=== PATIENT | female | born 1985 | race Caucasian/White ===

== ENCOUNTER 2020-02-25 05:56 | Inpatient (IN) | payer BC, OTHER ==
[2020-02-25 06:32] VITALS: BMI 28.9
[2020-02-25] MEDS ORDERED: Promethazine HCl 25 MG/ML VIAL IM PRN (07:33)
[2020-02-25] MEDS ORDERED: Butorphanol Tartrate 1 MG/ML VIAL SLOW IVP PRN (07:33)
[2020-02-25] MEDS ORDERED: Ibuprofen 800 MG TAB PO PRN (07:33)
[2020-02-25] MEDS ORDERED: Ondansetron PF 4 MG/2 ML Vial IVP PRN ×2 (07:33→14:58)
[2020-02-25] MEDS ORDERED: NS / Oxytocin 40 units/1000ml 1,000 ML IV PRN (07:33)
[2020-02-25] MEDS ORDERED: Lidocaine 1% (PF) 30 ML VIAL SC PRN (07:33)
[2020-02-25] MEDS ORDERED: hydrALAZINE 20 MG/ML VIAL SLOW IVP PRN ×2 (07:33→14:58)
[2020-02-25] MEDS ORDERED: Acetaminophen 500 MG TAB PO PRN (07:33)
[2020-02-25] MEDS ORDERED: HYDROcodone/Acetaminophen 5/325 mg Tablet PO PRN ×4 (07:33→14:58)
[2020-02-25] MEDS ORDERED: Lactated Ringer's 1,000 ML IV SCH (07:45)
[2020-02-25 08:13] LABS: Hemoglobin 12.5 g/dL (12.0-16.0); Mean Corpuscular HGB CONC 32.4 g/dL (32.0-36.0); Mean Corpuscular Hemoglobin 30.6 pg (27.0-31.0); Mean Corpuscular Volume 94.4 fL (78.0-98.0); Mean Platelet Volume 7.2 fL (7.4-10.4); Platelet Count 279 thou/uL (130-400); RBC Distribution Width 11.3 % (11.5-14.5); Red Blood Cell (RBC) Count 4.08 mill/uL (4.20-5.40); White Blood Cell (WBC) Count 11.8 thou/uL (4.8-10.8)
[2020-02-25 09:06] LABS: HBSAg Index 0.18 S/CO (0-0.99); Hep B Surf Ag Non-Reactive S/CO (NonReactive); Syphilis Antibody Nonreactive (Nonreactive); Syphilis Antibody Index 0.03 S/CO (<1.00 Non-Reactive)
[2020-02-25] MEDS ORDERED: Milk Of Magnesia 30 ML UDCUP PO PRN (14:58)
[2020-02-25] MEDS ORDERED: diphenhydrAMINE 25 MG CAP PO PRN (14:58)
[2020-02-25] MEDS ORDERED: Misoprostol 200 MCG TAB VAG PRN (14:58)
[2020-02-25] MEDS ORDERED: Benzocaine-Menthol 82.5 ML CAN TOP PRN (14:58)
[2020-02-25] MEDS ORDERED: Preparation H Ointment 28 GM TUBE PR PRN (14:58)
[2020-02-25] MEDS ORDERED: Lanolin Ointment 7 GM TUBE TOP PRN (14:58)
[2020-02-25] MEDS ORDERED: Zolpidem Tartrate 5 MG TAB PO PRN (14:58)
[2020-02-25] MEDS ORDERED: Bisacodyl 10 MG SUPP PR PRN (14:58)
[2020-02-25] MEDS ORDERED: NS / Oxytocin 40 units/1000ml 1,000 ML IV SCH (15:00)
[2020-02-25] MEDS: Ibuprofen 800 MG TAB PO SCH (15:36)
[2020-02-25 18:55] LABS: SARS-CoV-2 MS2 Positive; SARS-CoV-2 N Gene Negative; SARS-CoV-2 S Gene Negative; SARS-CoV-2 by NAA Not Detected (NotDetected); SARS-CoV-2 orf1ab Negative
[2020-02-25] MEDS: Docusate Calcium (SURFAK) 240 MG CAP PO SCH (23:50)
[2020-02-25] MEDS: Ferrous Sulfate 325 MG TAB PO SCH (23:50)
[2020-02-26] MEDS: Ibuprofen 800 MG TAB PO SCH ×3 (06:19→21:30)
[2020-02-26 07:13] LABS: Hemoglobin 11.5 g/dL (12.0-16.0); Mean Corpuscular HGB CONC 34.3 g/dL (32.0-36.0); Mean Corpuscular Hemoglobin 32.7 pg (27.0-31.0); Mean Corpuscular Volume 95.4 fL (78.0-98.0); Mean Platelet Volume 7.2 fL (7.4-10.4); Platelet Count 244 thou/uL (130-400); RBC Distribution Width 11.1 % (11.5-14.5); Red Blood Cell (RBC) Count 3.51 mill/uL (4.20-5.40); White Blood Cell (WBC) Count 14.1 thou/uL (4.8-10.8)
[2020-02-26] MEDS ORDERED: Adacel (T-DAP) 0.5 ML SYRINGE IM ONE (09:00)
[2020-02-26] MEDS ORDERED: Prenatal Vitamin 1 TAB PO SCH (09:00)
[2020-02-26] MEDS: Docusate Calcium (SURFAK) 240 MG CAP PO SCH ×2 (09:28→21:30)
[2020-02-26] MEDS: Ferrous Sulfate 325 MG TAB PO SCH ×2 (09:29→17:31)
[2020-02-27 00:24] VITALS: BP 106/64; TEMP 98.5
== END 2020-02-26 22:00 | disposition home or self-care (01) | DRG 807 ==
LOC: L&D/OP 05:56 → L&D-LIB 06:50 → 3SW 22:17
PROVIDERS: ADMIT Obstetrics & Gynecology; ATTEND Obstetrics & Gynecology
PROC: 10E0XZZ Delivery of Products of Conception, External Approach (ICD-10-PCS; principal; 2020-02-25)
PROC: 10907ZC Drainage of Amniotic Fluid, Therapeutic from Products of Conception, Via Natural or Artificial Opening (ICD-10-PCS; 2020-02-25)
DX: O80 Encounter for full-term uncomplicated delivery (principal); Z37.0 Single live birth; Z3A.38 38 weeks gestation of pregnancy; Z20.828 Contact with and (suspected) exposure to other viral communicable diseases
CPT/HCPCS: 36415; 85027; 86780; 86850; 86900; 86901; 87340; 87635; 99285; U0003